=== PATIENT | female | born 1960 | race Caucasian/White ===

== ENCOUNTER 2025-01-15 18:23 | Inpatient (IN) ==
--- NOTE | 2025-01-15 18:38 | DR.GENAD ---
HPI Time Seen Time Seen by Provider: 01/15/25 18:30 Complaint/Symptoms Chief Complaint Doctors Comments: 64 yo F, hx of cirrhosis, MDS, CAD, BIBA for dyspnea over the past couple days with increasing severity. States she has had diarrhea daily for the past 2 wk, including dark almost black stool. Daughter states she has seemed slightly confused at times, but not today. Denies other complaints. COVID-19 Coronavirus risk:travel/contact w/high risk person: No Has patient experienced Coronavirus symptoms: Yes Coronavirus symptoms experienced: Shortness of Breath PMH PMH Past Medical History: Anxiety, Depression, Dyslipidemia, GERD, Hypertension and Schizophrenia Past Surgical History: Yes Surgical History: Cholecystectomy, Hysterectomy and Ortho Surgery Family History Family Medical History: Diabetes Mellitus, Cancer, [place], Coronary Artery Disease, Heart Failure and Hypertension Social History Do you use any recreational Drugs:: No Travel Risk Coronavirus risk:travel/contact w/high risk person: No Has patient experienced Coronavirus symptoms: Yes Coronavirus symptoms experienced: Shortness of Breath ROS Review of Systems Constitutional: Malaise, Weakness and Fatigue Respiratoy: Short of Breath Gastrointestinal/Abdominal: Diarrhea All Other Systems: Reviewed and Negative PE Vital Signs Vitals: Vital Signs Temperature 99.4 F Temperature 99.7 F Pulse Rate 125 Pulse Rate 124 Pulse Rate 126 Pulse Rate 123 Pulse Rate 127 Pulse Rate 127 Pulse Rate 128 Pulse Rate 126 Pulse Rate 133 Pulse Rate 127 Pulse Rate 122 Pulse Rate 121 Pulse Rate 121 Pulse Rate 120 Pulse Rate 125 Pulse Rate 119 Pulse Rate 109 Pulse Rate 113 Pulse Rate 117 Pulse Rate 116 Pulse Rate 115 Pulse Rate 115 Pulse Rate 114 Respiratory Rate 43 Respiratory Rate 39 Respiratory Rate 42 Respiratory Rate 113 Respiratory Rate 35 Respiratory Rate 35 Respiratory Rate 34 Respiratory Rate 37 Respiratory Rate 43 Respiratory Rate 34 Respiratory Rate 36 Respiratory Rate 35 Respiratory Rate 37 Respiratory Rate 38 Respiratory Rate 37 Respiratory Rate 35 Respiratory Rate 34 Respiratory Rate 34 Respiratory Rate 38 Respiratory Rate 35 Respiratory Rate 39 Respiratory Rate 40 Respiratory Rate 39 Blood Pressure 139/63 Blood Pressure 153/67 Blood Pressure 162/72 Blood Pressure 130/58 Blood Pressure 124/57 Blood Pressure 132/60 Blood Pressure 133/60 Blood Pressure 121/55 Blood Pressure 109/53 Blood Pressure 112/58 Blood Pressure 129/61 Blood Pressure 135/60 O2 Sat by Pulse Oximetry 100 O2 Sat by Pulse Oximetry 100 O2 Sat by Pulse Oximetry 100 O2 Sat by Pulse Oximetry 100 O2 Sat by Pulse Oximetry 100 O2 Sat by Pulse Oximetry 100 O2 Sat by Pulse Oximetry 100 O2 Sat by Pulse Oximetry 100 O2 Sat by Pulse Oximetry 100 O2 Sat by Pulse Oximetry 100 O2 Sat by Pulse Oximetry 99 O2 Sat by Pulse Oximetry 82 O2 Sat by Pulse Oximetry 84 O2 Sat by Pulse Oximetry 100 O2 Sat by Pulse Oximetry 93 O2 Sat by Pulse Oximetry 97 O2 Sat by Pulse Oximetry 93 O2 Sat by Pulse Oximetry 100 O2 Sat by Pulse Oximetry 81 O2 Sat by Pulse Oximetry 100 O2 Sat by Pulse Oximetry 100 General Limitations: No Limitations General Appearance: Alert and In No Apparent Distress Head Head Exam: Normal Inspection Eyes Eye exam: Normal Appearance ENT ENT Exam: Normal Exam External Ear Exam: Normal External Inspection TM/Canal Exam: Bilateral: Normal Nose Exam: Normal Nose Exam Mouth Exam: Normal Inspection Throat Exam: Normal Inspection Neck Neck Exam: Normal Inspection Chest Chest Inspection: Normal Inspection Respiratory Respiratory Exam: Normal Lung Sounds Bilat and Other (tachypnea with rate of 35/min) Respiratory Exam: Bilateral: Clear to Auscultation Cardiovascular Cardiovascular Exam: Regular Rate and Normal Rhythm Abdominal Exam Abdominal Exam: Normal Inspection, Normal Bowel Sounds and Soft Extremities Extremities Exam: Normal Inspection Back Back Exam: Normal Inspection Neurologic Neurological Exam: Alert and Oriented X3 Psychiatric Psychiatric Exam: Normal Affect and Normal Mood Skin Skin Exam: Warm, Dry, Intact and Normal Color ROR Labs Reviewed 01/15/25 18:48 01/15/25 18:48 Laboratory: WBC 11.6 X10^3/uL (3.6-10.0) H 01/15/25 18:48 RBC 1.86 X10^6/uL (3.5-5.4) L 01/15/25 18:48 Hgb 6.7 g/dL (12.0-16.0) L* 01/15/25 18:48 Hct 19.8 % (36.0-47.0) L* 01/15/25 18:48 MCV 106.1 fL (80.0-100.0) H 01/15/25 18:48 MCH 35.7 pg (27.0-34.0) H 01/15/25 18:48 MCHC 33.7 g/dL (33.0-35.0) 01/15/25 18:48 RDW 15.0 % (11.6-16.5) 01/15/25 18:48 Plt Count 124 X10^3/uL (150.0-450.0) L 01/15/25 18:48 Plt Count Comment Decreased (ADEQUATE) A 01/15/25 18:48 MPV 9.0 fL (7.4-11.0) 01/15/25 18:48 Neut % (Auto) 83.6 % (42.0-75.0) H 01/15/25 18:48 Lymph % (Auto) 9.2 % (21.0-51.0) L 01/15/25 18:48 [place] % (Auto) 6.8 % (0.0-13.0) 01/15/25 18:48 Eos % (Auto) 0.1 % (0.9-2.9) L 01/15/25 18:48 Baso % (Auto) 0.3 % (0.2-1.0) 01/15/25 18:48 Neut # (Auto) 9.7 x10^3/uL (2.2-4.8) H 01/15/25 18:48 Lymph # (Auto) 1.1 X10^3/uL (1.3-2.9) L 01/15/25 18:48 [place] # (Auto) 0.8 x10^3/uL (0.3-0.8) 01/15/25 18:48 Eos # (Auto) 0.0 x10^3/uL (0.0-0.2) 01/15/25 18:48 Baso # (Auto) 0.0 X10^3/uL (0.0-0.1) 01/15/25 18:48 Absolute Nucleated RBC 0.0 /100WBC 01/15/25 18:48 Plt Morphology Comment Normal (NORMAL) 01/15/25 18:48 RBC Morphology Abnormal (NORMAL) A 01/15/25 18:48 Macrocytosis 1+ A 01/15/25 18:48 PT 17.9 SECONDS (11.8-14.3) 01/15/25 18:48 INR Target Range - 01/15/25 18:48 INR 1.46 (0.8-1.3) H 01/15/25 18:48 APTT 29.2 SECONDS (22.9-36.5) 01/15/25 18:48 PTT Comment - 01/15/25 18:48 Sample Site Rr 01/15/25 18:32 ABG pH 7.450 (7.35-7.45) 01/15/25 18:32 ABG pCO2 24.0 mmHg (35.0-45.0) L 01/15/25 18:32 ABG pO2 89.0 mmHg (80.0-100.0) 01/15/25 18:32 ABG HCO3 16.7 mmol/L (22-26) L* 01/15/25 18:32 ABG O2 Saturation 97.0 % (90-100) 01/15/25 18:32 ABG Base Excess -5.6 mmol/L (-2.0-2.0) L 01/15/25 18:32 Gene Test Pos 01/15/25 18:32 A-a Gradient 31.0 mmHg 01/15/25 18:32 FiO2 21.0 01/15/25 18:32 Blood Gas Comments Husam well ae sw 01/15/25 18:32 Sodium 142 mmol/L (136-145) 01/15/25 18:48 Corrected Sodium 143 mmol/L (136-145) 01/15/25 18:48 Potassium 4.7 mmol/L (3.5-5.1) 01/15/25 18:48 Chloride 108 mmol/L (98-107) H 01/15/25 18:48 Carbon Dioxide 18.7 mmol/L (21-32) L 01/15/25 18:48 BUN 51 mg/dL (7-18) H 01/15/25 18:48 Creatinine 1.59 mg/dL (0.55-1.02) H 01/15/25 18:48 Est GFR (MDRD) Af Amer 42 (>60) L 01/15/25 18:48 Est GFR (MDRD) Non-Af 35 (>60) L 01/15/25 18:48 Glucose 132 mg/dL (65-99) H 01/15/25 18:48 Lactic Acid 6.7 mmol/L (0.4-2.0) H* 01/15/25 20:53 Calcium 7.7 mg/dL (8.5-10.1) L 01/15/25 18:48 Corrected Calcium 9.1 mg/dL (8.5-10.1) 01/15/25 18:48 Magnesium 1.7 mg/dL (2.0-2.9) L 01/15/25 18:48 Total Bilirubin 0.90 mg/dL (0.2-1.0) 01/15/25 18:48 AST 49 Units/L (15-37) H 01/15/25 18:48 ALT 46 Units/L (12-78) 01/15/25 18:48 Alkaline Phosphatase 75 Units/L (46-116) 01/15/25 18:48 Ammonia 103 umol/L (11-32) H 01/15/25 21:35 Creatine Kinase 160 Units/L (26-192) 01/15/25 18:48 Troponin I High Sens < 4.0 ng/L (4.0-60.0) L 01/15/25 18:48 B-Natriuretic Peptide 24.6 pg/mL (0-79) 01/15/25 18:48 Total Protein 5.4 g/dL (6.4-8.2) L 01/15/25 18:48 Albumin 2.3 g/dL (3.4-5.0) L 01/15/25 18:48 Globulin 3.1 g/dL (2.5-4.5) 01/15/25 18:48 Albumin/Globulin Ratio 0.7 Ratio (1.1-2.1) L 01/15/25 18:48 Stool Occult Blood Positive (NEGATIVE) A 01/15/25 22:25 SARS-CoV-2 (PCR) Negative (NEGATIVE) 01/15/25 19:04 Influenza Type A (PCR) Negative (NEGATIVE) 01/15/25 19:04 Influenza Type B (PCR) Negative (NEGATIVE) 01/15/25 19:04 RSV (PCR) Negative (NEGATIVE) 01/15/25 19:04 Blood Type B POSITIVE 01/15/25 19:51 Antibody Screen Negative 01/15/25 19:51 Crossmatch See Detail 01/15/25 19:51 Opioid Opioid Risk Tool Age (Ace box if 16-45): No History of Preadolescent Sexual Abuse: No Total: 0 Total Score Risk Category: Low Risk Copyright: Pedro GOMEZ predicting aberrant behaviors Discharge Plan Diagnosis Discharge Problem: Anemia, macrocytic, Lower gastrointestinal bleed, Acute hepatic encephalopathy, Sepsis, Colitis Discharge Plan Patient Disposition: ADMITTED INPATIENT Condition: Stable Orders to Discharge Patient Discharge Orders: Transfer (Routine); Ordered 01/15/25 Ordered By: Eduardo Quiroz Provider Note Additional Notes admitted by Dr Hernandez
[2025-01-15] MEDS: DECADRON INJ IVP ONE ×2 (18:42→18:47)
[2025-01-15] MEDS: DUONEB 0.5 MG/3 MG (3 mL) NEB ONE (18:43)
[2025-01-15] MEDS: ROCEPHIN VIAL 1 GRAM IV ONE (18:46)
[2025-01-15] MEDS: ZOFRAN INJ 4 MG VIAL IVP ONE (18:52)
[2025-01-15] MEDS: NS 1,000 ML IV 1,000 ML IV ONE ×2 (18:52→19:44)
--- NOTE | 2025-01-15 18:52 | EKG ---
Test Reason : Dyspnea Blood Pressure : */* mmHG Vent. Rate : 115 BPM Atrial Rate : 115 BPM P-R Int : 138 ms QRS Dur : 64 ms QT Int : 338 ms P-R-T Axes : -25 -1 -5 degrees QTc Int : 467 ms Sinus tachycardia Low voltage QRS Cannot rule out Anterior infarct , age undetermined Abnormal ECG When compared with ECG of 08-JAN-2025 00:32, Vent. rate has increased BY 40 BPM Confirmed by Edward Lo MD ([id number]) on 01/16/2025 5:47:41 AM Referred By: Confirmed By: Edward Lo MD
[2025-01-15 19:09] LABS: ABG BASE EXCESS -5.6 mmol/L (-2.0-2.0); ABG OXYGEN SATURATION 97.0 % (90-100); ABG PCO2 24.0 mmHg (35.0-45.0); ABG PH 7.450 (7.35-7.45); ABG PO2 89.0 mmHg (80.0-100.0)
[2025-01-15 19:10] LABS: MEAN PLATELET VOLUME 9.0 fL (7.4-11.0)
[2025-01-15 19:10] LABS: ABG ALLEN TEST POS; ABG HCO3 16.7 mmol/L (22-26)
[2025-01-15 19:13] LABS: RED CELL DISTRIBUTION WIDTH 15.0 % (11.6-16.5)
[2025-01-15 19:16] LABS: INR 1.46 (0.8-1.3)
[2025-01-15 19:27] LABS: COR CA(FOR HYPOALB) 9.1 mg/dL (8.5-10.1); COR NA(FOR HYPERGLY) 143 mmol/L (136-145); CREATININE 1.59 mg/dL (0.55-1.02); eGFR NON BLACK RACES 35 (>60)
[2025-01-15 19:28] LABS: PLATELET MORPHOLOGY COMMENT NORMAL (NORMAL)
--- NOTE | 2025-01-15 19:39 | RAD ---
EXAM: CHEST X-RAY HISTORY: Shortness of breath. TECHNIQUE: AP chest x-ray. COMPARISON: CXR dated May 26, 2023. FINDINGS: There is aortic atherosclerosis. The heart size and mediastinum are otherwise within normal limits. The lung sepulveda and costophrenic angles are clear. There is no acute parenchymal infiltrate, pleural effusion, or pneumothorax seen. The visualized bony structures are within normal limits. IMPRESSION: 1. No evidence for acute cardiopulmonary disease seen. 2. No evidence for active tuberculosis or other communicable diseases. 3. No significant interval change seen. THIS IS AN ELECTRONICALLY VERIFIED FINAL REPORT 01/15/2025 7:35 PM - Electronically signed by Nicole Flores MD
[2025-01-15] MEDS: OMNIPAQUE 350 mg/mL 100 mL BTL IVP NR (20:09)
[2025-01-15] MEDS: MAGNESIUM SULFATE 1 GRAM/100 mL PREMIX 1 G/100 ML BAG IV SCH (20:29)
--- NOTE | 2025-01-15 20:34 | CT ---
EXAM: CTA, CHEST HISTORY: SHORTNESS OF BREATH; COMPARISON: Chest radiograph from January 15, 2025 and CTA chest from May 26, 2023 TECHNIQUE: Axial CT images of the chest were obtained after the administration of 75 mL Omnipaque IV contrast utilizing a CTA protocol. 3D MIPS were performed and reviewed for further evaluation. Radiation dose: 214.52 mGy-cm total DLP FINDINGS: Trace nonspecific pericardial effusion. No mediastinal or hilar lymphadenopathy. Aorta is normal in caliber without dissection. Pulmonary arteries are normal in caliber without filling defects to suggest a pulmonary embolus. Airways are widely patent. Thyroid appears normal. No pleural effusion. No focal infiltrate. No pneumothorax. No concerning lung parenchymal lesion identified. Cirrhotic morphology of the liver. Colonic wall thickening involving the imaged portion of the ascending and transverse colon. No acute osseous abnormality. IMPRESSION: 1. No acute intrathoracic abnormality, specifically, no pulmonary embolus identified. 2. Cirrhotic morphology of the liver. 3. Colonic wall thickening involving the imaged portion of the ascending and transverse colon. Finding likely represents hepatic enteropathy; although correlation for right sided abdominal symptoms is recommended to exclude infectious or inflammatory colitis. THIS IS AN ELECTRONICALLY VERIFIED FINAL REPORT 01/15/2025 8:30 PM - Electronically signed by Fili Jha MD
--- NOTE | 2025-01-15 21:41 | CT ---
EXAM: ABDOMEN/PELVIS W/O CON HISTORY: abdominal pain,swelling; Patient c/o N/V/D, shortness of breath that started yesterday. Patient has recently been seen in ER and transferred to [facility] for elevated CE. COMPARISON: None. TECHNIQUE: Non-contras rhonda axial CT images of the abdomen and pelvis were obtained and reformatted into coronal and sagittal planes for further evaluation. Radiation dose: 235.65 mGy-cm total DLP FINDINGS: Lung bases are clear. Stomach appears normal. Cirrhotic morphology of the liver. Splenomegaly. Pancreas and adrenal glands are unremarkable. Status post cholecystectomy without biliary duct dilatation. No intra or extrahepatic biliary dilatation. Unremarkable appearance of the kidneys. No hydronephrosis, hydroureter or ureteral calculus. Unremarkable appearance of the urinary bladder. Few scattered colonic diverticula without diverticulitis. Colonic wall thickening involving the cecum, ascending colon, transverse colon and the descending colon. Small bowel is unremarkable. Reproductive structures are unremarkable. No evidence of acute appendicitis. No pneumoperitoneum. No significant fluid collection. No adenopathy. No acute osseous abnormality. IMPRESSION: 1. Cirrhotic morphology of the liver resulting in splenomegaly. 2. Colonic wall thickening from the cecum to the distal descending colon could represent hepatic enteropathy related to the patient's cirrhosis; although infectious or inflammatory colitis should be clinically considered. 3. Few scattered colonic diverticula without diverticulitis. THIS IS AN ELECTRONICALLY VERIFIED FINAL REPORT 01/15/2025 9:38 PM - Electronically signed by Fili Jha MD
[2025-01-15] MEDS: NS 250 ML IV 250 ML IV ONE (22:55)
[2025-01-15 23:35] LABS: BLOOD/HEMOGLOBIN,URINE NEGATIVE (NEGATIVE); LEUKOCYTE ESTERASE ,URINE NEGATIVE (NEGATIVE); NITRITES,URINE NEGATIVE (NEGATIVE)
[2025-01-15 23:50] LABS: APPEARANCE,URINE CLEAR (CLEAR); SQUAMOUS EPITHELIAL CELL,UR FEW /HPF (NEGATIVE)
[2025-01-16] MEDS: DECADRON INJ ONE (00:17)
[2025-01-16] MEDS: NS 1,000 ML IV 1,000 ML ONE ×2 (00:17→00:18)
[2025-01-16] MEDS: ZOFRAN INJ 4 MG VIAL ONE (00:18)
[2025-01-16] MEDS: OMNIPAQUE 350 mg/mL 100 mL BTL 100 ML ONE (00:18)
[2025-01-16] MEDS: NS 250 ML IV 250 ML IV ONE (00:19)
[2025-01-16] MEDS ORDERED: ZOFRAN TAB 4 MG PO PRN (00:22)
[2025-01-16] MEDS ORDERED: ZOFRAN INJ 4 MG VIAL IVP PRN (00:22)
[2025-01-16] MEDS ORDERED: ULTRAM PO PRN (00:22)
[2025-01-16] MEDS ORDERED: TYLENOL 325 MG TAB PO PRN (00:22)
[2025-01-16] MEDS ORDERED: LIORESAL PO PRN (00:22)
[2025-01-16] MEDS: NS 1,000 ML IV 1,000 ML IV SCH (00:28)
[2025-01-16] MEDS: CONSULT PHARMACY - POTASSIUM & MAGNESIUM XX SCH (00:29)
[2025-01-16] MEDS: CHRONULAC PO SCH (00:29)
[2025-01-16] MEDS: MAG-OX TAB PO SCH (00:59)
[2025-01-16] MEDS ORDERED: K-DUR TAB 20 MEQ PO SCH (01:00)
[2025-01-16 01:33] VITALS: BMI 26.7
[2025-01-16] MEDS: NORCO 5/325 MG TAB PO PRN (02:17)
[2025-01-16] MEDS: MORPHINE SULFATE INJ 2 MG INJ IVP PRN (04:37)
[2025-01-16 06:18] LABS: MEAN PLATELET VOLUME 8.5 fL (7.4-11.0); RED CELL DISTRIBUTION WIDTH 18.4 % (11.6-16.5)
[2025-01-16 06:19] LABS: COR CA(FOR HYPOALB) 8.8 mg/dL (8.5-10.1); COR NA(FOR HYPERGLY) 143.0 mmol/L (136-145); CREATININE 1.36 mg/dL (0.55-1.02); eGFR NON BLACK RACES 41.0 (>60)
[2025-01-16] MEDS: LIPITOR TAB 40 MG PO SCH (09:06)
[2025-01-16] MEDS: MOBIC TAB 15 MG PO SCH (09:06)
[2025-01-16] MEDS: VISBIOME PROBIOTIC CAP 112.5 B or equivalent PO SCH (09:06)
[2025-01-16] MEDS: CYMBALTA PO SCH (09:06)
[2025-01-16] MEDS: LOPRESSOR TAB 25 MG PO SCH (09:07)
[2025-01-16] MEDS: NAMENDA TAB 10 MG PO SCH (09:07)
[2025-01-16] MEDS: XIFAXAN PO SCH (09:07)
[2025-01-16] MEDS: D5 LR 1,000 ML 1,000 ML IV ONE (11:55)
[2025-01-16] MEDS: DIPRIVAN VIAL 20 ML ONE (12:02)
[2025-01-16 15:05] LABS: COR CA(FOR HYPOALB) 8.9 mg/dL (8.5-10.1); COR NA(FOR HYPERGLY) 144.0 mmol/L (136-145); CREATININE 1.27 mg/dL (0.55-1.02); eGFR NON BLACK RACES 45.0 (>60)
[2025-01-16] MEDS ORDERED: BUTT CREAM (COMPOUND) TOP PRN (17:08)
[2025-01-16] MEDS: BUTT CREAM (COMPOUND) ONE (17:09)
[2025-01-16] MEDS: PROTONIX INJ 40 MG VIAL IVP SCH (22:07)
[2025-01-16] MEDS: PEPCID TAB 40 MG PO SCH (22:08)
[2025-01-17 06:33] LABS: MEAN PLATELET VOLUME 8.8 fL (7.4-11.0); RED CELL DISTRIBUTION WIDTH 19.7 % (11.6-16.5)
[2025-01-17 06:37] LABS: COR CA(FOR HYPOALB) 8.9 mg/dL (8.5-10.1); CREATININE 0.96 mg/dL (0.55-1.02); eGFR NON BLACK RACES > 60 (>60)
[2025-01-17] MEDS: PROVENTIL NEB TX 0.083% 2.5MG/ 3ML NEB PRN (08:59)
[2025-01-17 09:41] VITALS: O2SAT 100
[2025-01-17] MEDS: NS 500 ML IV 500 ML IV ONE ×2 (19:04→19:06)
[2025-01-18] MEDS: VISTARIL PO PRN (03:30)
[2025-01-18 06:13] LABS: MEAN PLATELET VOLUME 8.8 fL (7.4-11.0); RED CELL DISTRIBUTION WIDTH 17.8 % (11.6-16.5)
[2025-01-18 06:27] LABS: COR CA(FOR HYPOALB) 8.8 mg/dL (8.5-10.1); CREATININE 0.95 mg/dL (0.55-1.02); eGFR NON BLACK RACES > 60 (>60)
[2025-01-18] MEDS ORDERED: CONSULT PHARMACY - POTASSIUM & MAGNESIUM XX SCH (07:00)
[2025-01-18] MEDS ORDERED: K-DUR TAB 20 MEQ PO SCH (09:00)
[2025-01-18] MEDS ORDERED: MAG-OX TAB PO SCH (09:00)
--- NOTE | 2025-01-18 12:56 | RAD ---
EXAM: CHEST, PA/LAT ADULT HISTORY: hypoxia; COMPARISON: 01/16/20 25 FINDINGS: The cardiomediastinal silhouette is stable. Faint bilateral airspace opacities. No pneumothorax or effusion. No acute osseous abnormality. IMPRESSION: Faint bilateral opacities which could be due to congestion/edema. THIS IS AN ELECTRONICALLY VERIFIED FINAL REPORT 01/18/2025 12:52 PM - Electronically signed by Roe Gorman MD
[2025-01-18] MEDS: LASIX IVP ONE (13:29)
[2025-01-19 06:26] LABS: COR CA(FOR HYPOALB) 9.2 mg/dL (8.5-10.1); CREATININE 0.84 mg/dL (0.55-1.02); eGFR NON BLACK RACES > 60 (>60)
[2025-01-19 06:27] LABS: MEAN PLATELET VOLUME 9.3 fL (7.4-11.0); RED CELL DISTRIBUTION WIDTH 17.1 % (11.6-16.5)
[2025-01-19] MEDS ORDERED: CONSULT PHARMACY - POTASSIUM & MAGNESIUM XX SCH (07:00)
[2025-01-19 07:17] LABS: BASOPHILS % (MANUAL) 1 % (0-1)
[2025-01-19 07:19] LABS: PLATELET MORPHOLOGY COMMENT NORMAL (NORMAL)
--- NOTE | 2025-01-19 07:36 | RAD ---
EXAM: CHEST, PA/LAT ADULT HISTORY: hypoxia; COMPARISON: 01/18/2025 FINDINGS: The cardiomediastinal silhouette is stable. Hypoventilatory exam with scattered bilateral airspace opacities. No pneumothorax or effusion. No acute osseous abnormality. IMPRESSION: Bilateral opacities which may be due to edema or pneumonia. Recommend follow-up to resolution. THIS IS AN ELECTRONICALLY VERIFIED FINAL REPORT 01/19/2025 7:32 AM - Electronically signed by Roe Gorman MD
[2025-01-19] MEDS: MAG-OX TAB PO SCH (10:03)
[2025-01-19] MEDS: CYTOTEC PO SCH (10:04)
[2025-01-19] MEDS: K-DUR TAB 20 MEQ PO SCH (10:04)
[2025-01-19 13:03] VITALS: BP 107/53; PULSE 72; RESP 19; TEMP 98.8
== END 2025-01-19 13:25 | disposition home health service (06) | DRG 442 ==
LOC: SUPCPDRO → ER 18:23 → MED/SURG 23:07
PROVIDERS: ADMIT Obstetrics & Gynecology Obstetrics; ATTEND Obstetrics & Gynecology Obstetrics
DX: D64.89 Other specified anemias; R06.02 Shortness of breath; Z03.818 Encounter for observation for suspected exposure to other biological agents ruled out; K92.1 Melena; K25.9 Gastric ulcer, unspecified as acute or chronic, without hemorrhage or perforation; R79.1 Abnormal coagulation profile; E83.52 Hypercalcemia; Z16.19 Resistance to other specified beta lactam antibiotics; I10 Essential (primary) hypertension; K57.30 Diverticulosis of large intestine without perforation or abscess without bleeding; K76.82 Hepatic encephalopathy; R94.31 Abnormal electrocardiogram [ECG] [EKG]; K31.84 Gastroparesis; Z16.12 Extended spectrum beta lactamase (ESBL) resistance; I85.10 Secondary esophageal varices without bleeding; M19.90 Unspecified osteoarthritis, unspecified site; K74.69 Other cirrhosis of liver; K72.90 Hepatic failure, unspecified without coma; Z16.23 Resistance to quinolones and fluoroquinolones; K26.7 Chronic duodenal ulcer without hemorrhage or perforation; Z16.29 Resistance to other single specified antibiotic; R00.0 Tachycardia, unspecified; F41.8 Other specified anxiety disorders; Z74.1 Need for assistance with personal care; Z16.11 Resistance to penicillins; G25.81 Restless legs syndrome; E83.42 Hypomagnesemia; Z72.0 Tobacco use; R06.09 Other forms of dyspnea